=== PATIENT | female | born 1955 | race Two or more races ===

== ENCOUNTER → 2018-07-08 | Outpatient (CLI) | payer MEDICARE, BC, OTHER | END | disposition home or self-care (01) | LOC: HKI 11:54 | DX: M17.0 Bilateral primary osteoarthritis of knee (principal) | CPT/HCPCS: 73562; 73562-50 ==

== ENCOUNTER → 2018-08-05 | Outpatient (CLI) | payer MEDICARE, BC | END | disposition home or self-care (01) | LOC: HKI 14:54 | DX: Z01.818 Encounter for other preprocedural examination (principal); M17.11 Unilateral primary osteoarthritis, right knee | CPT/HCPCS: G0463 ==

== ENCOUNTER 2018-08-15 07:18 | Inpatient (IN) | payer MEDICARE, BC ==
[~2018-08-15 07:18] MED LIST: CEFAZOLIN 2 GM/50 ML (PMX) 50 ML (FOR WT < 120 KG) IVPB
[2018-08-15] MEDS: DEXAMETHASONE 4 MG/ML 1 ML INJ IV (08:08)
[2018-08-15] MEDS: LACTATED RINGER'S 1,000 ML IV ×2 (08:10→15:52)
[2018-08-15] MEDS: ACETAMINOPHEN 1000MG/100ML IV 100 ML IVPB (08:20)
[2018-08-15] MEDS ORDERED: ROCURONIUM 50 MG INJ (08:37)
[2018-08-15] MEDS ORDERED: DEXAMETHASONE 4 MG/ML 5 ML INJ (08:37)
[2018-08-15] MEDS ORDERED: GLYCOPYRROLATE 0.4 MG INJ (08:37)
[2018-08-15] MEDS ORDERED: CEFAZOLIN 1 GM INJ (08:37)
[2018-08-15] MEDS ORDERED: FENTAnyl 50 MCG/ML VIAL (08:37)
[2018-08-15] MEDS ORDERED: ONDANSETRON 4 MG INJ (08:37)
[2018-08-15] MEDS ORDERED: PROPOFOL 20 ML (08:37)
[2018-08-15] MEDS ORDERED: MIDAZOLAM 1 MG/ML 2 ML INJ (08:37)
[2018-08-15] MEDS ORDERED: ROPIVACAINE 0.5 % 30 ML VIAL (08:38)
[2018-08-15] MEDS ORDERED: LIDOCAINE 2% (SDV) 5 ML INJ (09:00)
[2018-08-15] MEDS ORDERED: NEOSTIGMINE 10 MG INJ (09:00)
[2018-08-15] MEDS ORDERED: DESFLURANE 15 MIN (09:00)
[2018-08-15] MEDS ORDERED: SUGAMMADEX SODIUM 200 MG/2 ML VIAL IV (09:21)
[2018-08-15] MEDS ORDERED: KETOROLAC 30 MG INJ IV (10:30)
[2018-08-15] MEDS ORDERED: FENTAnyl 50 MCG/ML VIAL IV ×3 (10:30)
[2018-08-15] MEDS ORDERED: TRIMETHOBENZAMIDE 100 MG/ML VIAL IM ×2 (10:30)
[2018-08-15] MEDS ORDERED: HYDROmorphONE 1 MG/5 ML IV SYRINGE IV ×3 (10:30)
[2018-08-15] MEDS ORDERED: EPHEDrine SULFATE 50 MG/5 ML SYG IV (10:30)
[2018-08-15] MEDS ORDERED: MIDAZOLAM 1 MG/ML 2 ML INJ IV (10:30)
[2018-08-15] MEDS ORDERED: hydrALAzine 20 MG INJ IV (10:30)
[2018-08-15] MEDS ORDERED: ONDANSETRON 4 MG INJ IV ×2 (10:30)
[2018-08-15] MEDS ORDERED: LABETALOL HCL 20MG INJ IV (10:30)
[2018-08-15] MEDS ORDERED: OXYCODONE/ACETAMINOPHEN (5/325) TAB PO ×2 (10:30)
[2018-08-15] MEDS ORDERED: NALBUPHINE HCL (10 MG/1 ML) INJ IV (10:30)
[2018-08-15] MEDS ORDERED: IPRATROPIUM (NEB) 0.5 MG/2.5 ML AMP HHN (10:30)
[2018-08-15] MEDS ORDERED: ALBUTEROL 0.083% (NEB) 2.5 MG/3 ML AMP HHN (10:30)
[2018-08-15] MEDS ORDERED: MEPERIDINE 25 MG INJ IV (10:30)
[2018-08-15] MEDS ORDERED: ZOLPIDEM 5 MG TAB PO (10:30)
[2018-08-15] MEDS ORDERED: HYDROmorphONE 0.5 MG/0.5 ML SYG IV ×2 (10:30)
[2018-08-15] MEDS ORDERED: KETOROLAC 15 MG INJ IV ×2 (10:30→12:30)
[2018-08-15] MEDS ORDERED: DIPHENHYDRAMINE 50 MG INJ IV ×2 (10:30)
[2018-08-15] MEDS ORDERED: NALOXONE (0.4 MG/ML) INJ IV ×2 (10:30→12:30)
[2018-08-15] MEDS ORDERED: morphine SULFATE/PF (10 MG/10 ML) INJ (10:37)
[2018-08-15] MEDS: POLYMYXIN B 500000 UNIT INJ (10:59)
[2018-08-15] MEDS: BACITRACIN 50000 UNITS INJ (10:59)
[2018-08-15] MEDS: TRANEXAMIC ACID 1GM/100ML(PMX) 100 ML AT CLOSURE X1 IVPB (11:40)
[2018-08-15] MEDS: TRANEXAMIC ACID 1GM/100ML(PMX) 100 ML AT INCISION X1 IVPB (11:42)
[2018-08-15] MEDS ORDERED: MAGNESIUM HYDROXIDE 30ML CUP PO (12:30)
[2018-08-15] MEDS ORDERED: oxyCODONE 5 MG TAB PO (12:30)
[2018-08-15] MEDS ORDERED: NACL 0.9% 3 ML SYG IV (12:30)
[2018-08-15] MEDS: GABAPENTIN 100 MG CAP PO ×2 (13:00→20:22)
[2018-08-15] MEDS: CEFAZOLIN 2 GM/50 ML (PMX) 50 ML IVPB ×2 (13:39→20:22)
[2018-08-16] MEDS: LACTATED RINGER'S 1,000 ML IV ×2 (00:41→13:11)
[2018-08-16] MEDS: CEFAZOLIN 2 GM/50 ML (PMX) 50 ML IVPB (04:53)
[2018-08-16 05:23] LABS: ADD MAN DIFF? NO
[2018-08-16 05:25] LABS: WHITE BLOOD COUNT 13.5 10^3/ul (4.8-10.8)
[2018-08-16 05:25] LABS: BASOPHILS % 0.1 % (0.0-2.0); EOSINOPHILS % 0.1 % (0.0-7.0); HEMATOCRIT 33.7 % (37.0-47.0); HEMOGLOBIN 10.9 g/dl (12.0-16.0); LYMPHOCYTES # 2.1 10^3/ul (0.8-2.9); LYMPHOCYTES % 15.5 % (15.0-51.0); MEAN CORPUSCULAR HEMOGLOBIN 29.9 pg (29.0-33.0); MEAN CORPUSCULAR HGB CONC 32.3 g/dl (32.0-37.0); MEAN CORPUSCULAR VOLUME 92.3 fl (82.0-101.0); MONOCYTE # 0.9 10^3/ul (0.3-0.9); MONOCYTES % 6.7 % (0.0-11.0); NEUTROPHIL # 10.4 10^3/ul (1.6-7.5); NEUTROPHILS % 77.2 % (39.0-77.0); PLATELET COUNT 196 10^3/UL (140-415); RED BLOOD COUNT 3.65 10^6/ul (4.20-5.40); RED CELL DISTRIBUTION WIDTH 13.3 % (11.5-14.5)
[2018-08-16 06:02] LABS: ANION GAP 4 (5-13); BLOOD UREA NITROGEN 15 mg/dl (7-20); CALCIUM 9.1 mg/dl (8.4-10.2); CARBON DIOXIDE 26 mmol/L (21-31); CHLORIDE 109 mmol/L (97-110); CREATININE 0.47 mg/dl (0.44-1.00); Estimated GFR > 60 mL/min (>60); GLUCOSE 104 mg/dl (70-220); POTASSIUM 4.4 mmol/L (3.5-5.1); SODIUM 139 mmol/L (135-144)
[2018-08-16] MEDS: CELECOXIB 100 MG CAP PO (08:58)
[2018-08-16] MEDS: ASPIRIN (EC) 325 MG TAB PO (08:58)
[2018-08-16] MEDS: DOCUSATE SODIUM 100 MG CAP PO (08:58)
[2018-08-16] MEDS: GABAPENTIN 100 MG CAP PO ×2 (08:58→12:56)
[2018-08-16] MEDS ORDERED: ONDANSETRON 4 MG INJ IV (12:30)
[2018-08-16] MEDS: oxyCODONE 5 MG TAB PO (14:24)
[2018-08-17] MEDS ORDERED: PANTOPRAZOLE (EC) 40 MG TAB PO (06:00)
== END 2018-08-16 17:20 | disposition home health service (06) | DRG 470 ==
LOC: REC 07:18 → MS1 14:56
PROC: 0SRC0J9 Replacement of Right Knee Joint with Synthetic Substitute, Cemented, Open Approach (ICD-10-PCS; principal; 2018-08-15 10:00)
DX: M17.11 Unilateral primary osteoarthritis, right knee (principal); E66.9 Obesity, unspecified; F17.200 Nicotine dependence, unspecified, uncomplicated; Z68.32 Body mass index [BMI] 32.0-32.9, adult
CPT/HCPCS: 73560; 80048; 85025; 86850; 86900; 86901; 87081; 88304; 88311; 90686; 97116; 97161; 97530

== ENCOUNTER → 2018-09-02 | Outpatient (CLI) | payer MEDICARE, BC | END | disposition home or self-care (01) | LOC: HKI 10:31 | DX: Z09 Encounter for follow-up examination after completed treatment for conditions other than malignant neoplasm (principal); Z96.651 Presence of right artificial knee joint | CPT/HCPCS: 73560; 73560-RT ==